=== PATIENT | female | born 1965 | race Caucasian/White ===

== ENCOUNTER → 2020-11-02 | Outpatient (CLI) | payer OTHER | LOC: HEART CORB 09:00 | DX: R07.2 Precordial pain (principal); I10 Essential (primary) hypertension; I08.3 Combined rheumatic disorders of mitral, aortic and tricuspid valves | CPT/HCPCS: 93306 ==

== ENCOUNTER → 2021-01-23 | Outpatient (CLI) | payer OTHER | LOC: HEART CORB 10:03 | DX: R07.2 Precordial pain (principal); R06.02 Shortness of breath; I10 Essential (primary) hypertension; E11.9 Type 2 diabetes mellitus without complications; E78.5 Hyperlipidemia, unspecified; Z82.49 Family history of ischemic heart disease and other diseases of the circulatory system ==

== ENCOUNTER → 2021-02-06 | Outpatient (CLI) | payer OTHER | LOC: HEART CORB 09:26 | DX: E78.5 Hyperlipidemia, unspecified (principal) | CPT/HCPCS: 78452; A9502; J2785 ==